=== PATIENT | male | born 1990 | race Caucasian/White ===

== ENCOUNTER 2021-01-04 09:15 | Day surgery (SDC) | payer OTHER, SELFPAY ==
[~2021-01-04] VITALS: Ht 182.9 cm; Wt 131.5 kg
[2021-01-04] MEDS ORDERED: MIDAZOLAM 5 MG/5 ML VIAL ONE (11:57)
[2021-01-04] MEDS ORDERED: fentaNYL citrate 0.05 MG/ML VIAL ONE (11:57)
[2021-01-04] MEDS ORDERED: diphenhydrAMINE 50 MG/ML VIAL ONE (12:01)
[2021-01-04] MEDS ORDERED: LIDOCAINE 2% 100 MG/5 ML UJET TP ONE ×2 (12:02→13:55)
[2021-01-04] MEDS ORDERED: MIDAZOLAM 2 MG/2 ML VIAL IVP ONE (13:55)
[2021-01-04] MEDS ORDERED: diphenhydrAMINE 50 MG/ML VIAL IVP ONE (13:55)
[2021-01-04] MEDS ORDERED: fentaNYL citrate 0.05 MG/ML VIAL IVP ONE (13:55)
== END 2021-01-04 13:00 | disposition home or self-care (01) ==
LOC: MOR 09:15 → MMU 09:21 → MOR 13:00
PROVIDERS: ATTEND Internal Medicine Gastroenterology
DX: K52.9 Noninfective gastroenteritis and colitis, unspecified (principal); K62.5 Hemorrhage of anus and rectum; J45.909 Unspecified asthma, uncomplicated; Z20.822 Contact with and (suspected) exposure to COVID-19
CPT/HCPCS: 45380; 87426; J1200; J2250; J3010; J7030